=== PATIENT | female | born 1990 | race American Indian/Alaskan Native ===

== ENCOUNTER 2020-11-30 18:38 | Emergency (ER) | payer MEDICAID, OTHER ==
[2020-11-30 18:44] VITALS: BP 137/92
--- NOTE | 2020-11-30 18:54 | Emergency Department Report ---
- General Chief complaint: Earache Stated complaint: RT EAR SWELLING Time Seen by Provider: 11/30/20 18:42 Source: patient Mode of arrival: Ambulatory Limitations: No Limitations - History of Present Illness Initial comments: Patient is a 29-year-old female presents emergency room with complaints of right ear swelling that began 3 days ago. She states that she did spend the night at her mother's house. She denies being bit by anything that she is aware of. She states it feels like a burning/stinging sensation. She denies any other rash anywhere else. She denies any facial swelling, difficulty swallowing, difficulty breathing, sensation of throat closing. She denies any ear pain or drainage or bleeding. She denies any hearing changes. No past medical history. No allergies to medications. She denies any new soaps, lotions, detergents, medications, antibiotics, foods nothing new that she is aware of. She states that she has a IUD in place and that her last menstrual cycle was 11/15/2020. - Related Data Previous Rx's Medication Instructions Recorded Last Taken Type Ibuprofen [Motrin] 600 mg PO Q6H PRN #30 tablet 04/19/13 Unknown Rx methOCARBAMOL [Robaxin] 750 mg PO BID #14 tab 04/19/13 Unknown Rx HYDROcodone/APAP 10-325 [[place] 1 each PO Q6HR PRN #16 tablet 12/15/13 Unknown Rx 10-325 mg TAB] Gentamicin 0.3% Ophth Soln 2 drops OP Q4H #1 bottle 03/06/14 Unknown Rx Podofilox [Condylox 0.5%] 1 applicatio TP BID #6 gel..gram. 12/19/14 Unknown Rx Loratadine 10 mg PO DAILY 7 Days #7 tablet 11/30/20 Unknown Rx Prednisone [predniSONE 10 mg 10 mg PO .TAPER #1 tab.ds.pk 11/30/20 Unknown Rx (6-Day Pack, 21 Tabs)] Sulfamethoxazole/Trimethoprim 1 each PO BID 7 Days #14 tablet 11/30/20 Unknown Rx [Bactrim DS TAB] Allergies Allergy/AdvReac Type Severity Reaction Status Date / Time No Known Allergies Allergy Verified 11/30/20 18:42 Abscess Boil HPI - HPI Chief Complaint: Earache Stated Complaint: RT EAR SWELLING Time Seen by Provider: 10/05/21 18:42 Home Medications: Previous Rx's Medication Instructions Recorded Last Taken Type Ibuprofen [Motrin] 600 mg PO Q6H PRN #30 tablet 04/19/13 Unknown Rx methOCARBAMOL [Robaxin] 750 mg PO BID #14 tab 04/19/13 Unknown Rx HYDROcodone/APAP 10-325 [[place] 1 each PO Q6HR PRN #16 tablet 12/15/13 Unknown Rx 10-325 mg TAB] Gentamicin 0.3% Ophth Soln 2 drops OP Q4H #1 bottle 03/06/14 Unknown Rx Podofilox [Condylox 0.5%] 1 applicatio TP BID #6 gel..gram. 12/19/14 Unknown Rx Loratadine 10 mg PO DAILY 7 Days #7 tablet 11/30/20 Unknown Rx Prednisone [predniSONE 10 mg 10 mg PO .TAPER #1 tab.ds.pk 11/30/20 Unknown Rx (6-Day Pack, 21 Tabs)] Sulfamethoxazole/Trimethoprim 1 each PO BID 7 Days #14 tablet 11/30/20 Unknown Rx [Bactrim DS TAB] Allergies/Adverse Reactions: Allergies Allergy/AdvReac Type Severity Reaction Status Date / Time No Known Allergies Allergy Verified 11/30/20 18:42 ED Review of Systems ROS: Stated complaint: RT EAR SWELLING Other details as noted in HPI Comment: All other systems reviewed and negative ED Past Medical Hx - Past Medical History Hx Asthma: Yes - Social History Smoking Status: Never Smoker Substance Use Type: None - Medications Home Medications: Home Medications Medication Instructions Recorded Confirmed Last Taken Type Ibuprofen [Motrin] 600 mg PO Q6H PRN #30 tablet 04/19/13 Unknown Rx methOCARBAMOL [Robaxin] 750 mg PO BID #14 tab 04/19/13 Unknown Rx HYDROcodone/APAP 10-325 [[place] 1 each PO Q6HR PRN #16 tablet 12/15/13 Unknown Rx 10-325 mg TAB] Gentamicin 0.3% Ophth Soln 2 drops OP Q4H #1 bottle 03/06/14 Unknown Rx Podofilox [Condylox 0.5%] 1 applicatio TP BID #6 gel..gram. 12/19/14 Unknown Rx Loratadine 10 mg PO DAILY 7 Days #7 tablet 11/30/20 Unknown Rx Prednisone [predniSONE 10 mg 10 mg PO .TAPER #1 tab.ds.pk 11/30/20 Unknown Rx (6-Day Pack, 21 Tabs)] Sulfamethoxazole/Trimethoprim 1 each PO BID 7 Days #14 tablet 11/30/20 Unknown Rx [Bactrim DS TAB] ED Physical Exam - General Limitations: No Limitations General appearance: alert, in no apparent distress - Head Head exam: Present: atraumatic, normocephalic - Eye Eye exam: Present: normal appearance - ENT ENT exam: Present: mucous membranes moist, other (right TM and canal are normal,the right ear pinna is erythematous, increased warmth, maculopapular rash, no drainage, no blistering, no mastoid ttp) - Neurological Exam Neurological exam: Present: alert, oriented X3 - Psychiatric Psychiatric exam: Present: normal affect, normal mood - Skin Skin exam: Present: warm, dry ED Course Vital Signs 11/30/20 18:43 Temperature 98.8 F Pulse Rate 75 Respiratory 16 Rate Blood Pressure 137/92 [Left] O2 Sat by Pulse 99 Oximetry ED Medical Decision Making - Medical Decision Making Patient is a 29-year-old female presents emergency room with complaints of right ear swelling that began 3 days ago. She states that she did spend the night at her mother's house. She denies being bit by anything that she is aware of. She states it feels like a burning/stinging sensation. She denies any other rash anywhere else. She denies any facial swelling, difficulty swallowing, difficulty breathing, sensation of throat closing. She denies any ear pain or drainage or bleeding. She denies any hearing changes. No past medical history. No allergies to medications. She denies any new soaps, lotions, detergents, medications, antibiotics, foods nothing new that she is aware of. She states that she has a IUD in place and that her last menstrual cycle was 11/15/2020. vitals are stable. on exam: right TM and canal are normal,the right ear pinna is erythematous, increased warmth, maculopapular rash, no drainage, no blistering, no mastoid ttp. Examination appears could likely be consistent with localized reaction/dermatitis versus mild cellulitis. discussed the importance of outpatient follow-up and strict return precautions. Advised patient Please take medication as prescribed. Follow-up with your primary care doctor to have area reexamined. Return to emergency room medially for any new or worsening symptoms. Critical care attestation.: If time is entered above; I have spent that time in minutes in the direct care of this critically ill patient, excluding procedure time. ED Disposition Clinical Impression: Dermatitis Cellulitis Qualifiers: Site of cellulitis: head Qualified Code(s): L03.811 - Cellulitis of head [any part, except face] Disposition: 01 HOME / SELF CARE / HOMELESS Is pt being admited?: No Does the pt Need Aspirin: No Condition: Stable Instructions: Cellulitis, Adult Additional Instructions: Please take medication as prescribed. Follow-up with your primary care doctor to have area reexamined. Return to emergency room medially for any new or worsening symptoms. Prescriptions: Sulfamethoxazole/Trimethoprim [Bactrim DS TAB] 1 each PO BID 7 Days #14 tablet Loratadine 10 mg PO DAILY 7 Days #7 tablet Prednisone [predniSONE 10 mg (6-Day Pack, 21 Tabs)] 10 mg PO .TAPER #1 tab.ds.pk Referrals: REYNA ROBLEDO MD [Staff Physician] - 3-5 Days [facility] [Provider Group] - 3-5 Days Time of Disposition: 18:52 Print Language: FAROESE
== END 2020-11-30 19:37 | disposition home or self-care (01) ==
LOC: ED 18:38
DX: L30.9 Dermatitis, unspecified (principal); L03.811 Cellulitis of head [any part, except face]; J45.909 Unspecified asthma, uncomplicated
CPT/HCPCS: 99282